=== PATIENT | male | born 1995 | race African-American/Black ===

== ENCOUNTER 2017-04-05 18:19 | Emergency (ER) | payer MEDICAID ==
[~2017-04-05] VITALS: Ht 160 cm; Wt 67.3 kg
[2017-04-05 18:34] VITALS: BP 112/62; TEMP 98.8
[2017-04-05] MEDS ORDERED: DOXYCYCLINE 10100 MG PO (19:26)
[2017-04-05 19:36] VITALS: PULSE 85
== END 2017-04-05 19:36 | disposition home or self-care (01) ==
LOC: COL.ER 18:19
DX: L02.416 Cutaneous abscess of left lower limb (principal); L81.8 Other specified disorders of pigmentation; Z90.81 Acquired absence of spleen; F17.200 Nicotine dependence, unspecified, uncomplicated

== ENCOUNTER 2017-08-25 20:41 | Emergency (ER) | payer MEDICAID ==
[~2017-08-25] VITALS: Ht 160 cm; Wt 63.6 kg
[~2017-08-25 20:41] MED LIST: DOXYCYCLINE 10100 MG PO
[2017-08-25 20:43] VITALS: BP 132/72; TEMP 100.2
[2017-08-25 21:38] LABS: INFLUENZA A POSITIVE; INFLUENZA B NEGATIVE
[2017-08-25] MEDS ORDERED: TAMIFLU 75MG75 MG PO (22:01)
[2017-08-25 22:11] VITALS: PULSE 92
== END 2017-08-25 22:12 | disposition home or self-care (01) ==
LOC: COL.ER 20:41
PROVIDERS: Nurse Practitioner
DX: J11.1 Influenza due to unidentified influenza virus with other respiratory manifestations (principal); F17.210 Nicotine dependence, cigarettes, uncomplicated; F12.90 Cannabis use, unspecified, uncomplicated

== ENCOUNTER 2017-10-09 18:58 | Emergency (ER) | payer MEDICAID ==
[~2017-10-09] VITALS: Ht 160 cm; Wt 63.6 kg
[~2017-10-09 18:58] MED LIST changes: +TAMIFLU 75MG75 MG PO
[2017-10-09 19:11] VITALS: BP 130/72; TEMP 98.2
[2017-10-09 20:16] LABS: COLLECTION METHOD CLEAN CATCH
[2017-10-09 20:17] LABS: HEMATOCRIT 46.5 % (42.0-52.0); MEAN CELL VOLUME 91 fl (80.0-100.0); MEAN CORPUSCULAR HEMOGLOBIN 31 pg (27.0-31.0); MEAN CORPUSCULAR HGB CONC 34 g/dl (33.0-37.0); MEAN PLATELET VOLUME 8.9 fl (7.4-10.4); PLATELET COUNT 409 K/mm3 (130-400); RED BLOOD COUNT 5.09 M/mm3 (4.20-5.60); REDCELL DISTRIBUTION WIDTH-CV 15.3 % (11.5-14.5)
[2017-10-09 20:30] LABS: ALBUMIN 5.5 gm/dL (3.5-5.0); BAND 14 % (0-10); BILIRUBIN,TOTAL 0.7 mg/dL (0.0-1.0); C-REACTIVE PROTEIN 0.8 mg/dL (0.0-0.9); CALCIUM 10.3 mg/dL (8.4-10.2); CREATININE, serum 0.88 mg/dL (0.66-1.25); LYMPHOCYTE 14 % (20.0-51.0); NEUTROPHILS 64 % (42.0-75.2); PLATELET ESTIMATE INCREASED (NORMAL); POTASSIUM 3.9 mmol/L (3.4-5.0)
[2017-10-09 20:30] LABS: PH 5 (5-8); URINE APPEARANCE Clear; URINE BILIRUBIN Negative (NEGATIVE); URINE BLOOD Negative (NEGATIVE); URINE COLOR Yellow; URINE GLUCOSE Negative (NEGATIVE); URINE KETONE 2+ (NEGATIVE); URINE LEUKOCYTE ESTERASE Negative (NEGATIVE); URINE NITRATE Negative (NEGATIVE); URINE PROTEIN(semi-quant) 1+ (NEGATIVE)
[2017-10-09 20:44] LABS: MUCOUS Present /lpf; URINE RBC 0-2 /hpf
[2017-10-09] MEDS ORDERED: ZOFRAN ODT4 MG PO (21:08)
[2017-10-09 21:25] VITALS: PULSE 73
== END 2017-10-09 21:26 | disposition home or self-care (01) ==
LOC: COL.ER 18:58
PROVIDERS: Emergency Medicine
DX: K52.9 Noninfective gastroenteritis and colitis, unspecified (principal); K56.609 Unspecified intestinal obstruction, unspecified as to partial versus complete obstruction; F17.210 Nicotine dependence, cigarettes, uncomplicated; F12.90 Cannabis use, unspecified, uncomplicated; Z90.81 Acquired absence of spleen
CPT/HCPCS: C9113; J2405; J7030; Q9967